=== PATIENT | female | born 1995 | race Caucasian/White ===

== ENCOUNTER 2017-07-05 17:51 | Inpatient (IN) | payer OTHER ==
[2017-07-05] MEDS ORDERED: DEXTROSE 5%-LACTATED RINGERS 500 ML IV ONE ×2 (20:00→21:00)
[2017-07-05 21:51] VITALS: BMI 32.6
--- NOTE | 2017-07-05 22:02 | HP ---
Past Medical History - Admission Chief Complaint: Labor pain History of Present Illness: 22 yo @ 39.1 weeks gestation, EDC 07/11/17, admitted for labor pain. She's been experiencing pain since 5 am. She denies any vaginal bleeding nor ROM. History Source: Patient Limitations to Obtaining History: No Limitations - Past Medical History ...: 1 ...Para: 0 ...Term: 0 ...: 0 ...Spon : 0 ...Induced : 0 ...Multiple Gestation: 0 ...LMP: 10/04/16 ... Weeks Gestation by Dates: 39.1 ...EDC by Dates: 07/11/17 - Past Surgical History Past Surgical History: Yes: None Hx Myomectomy: No Hx Transabdominal Cerclage: No - Smoking History Smoking history: Never smoked - Alcohol/Substance Use Hx Alcohol Use: No Home Medications - Allergies Allergies/Adverse Reactions: Allergies Allergy/AdvReac Type Severity Reaction Status Date / Time ibuprofen [From Motrin] AdvReac Mild Swelling Verified 07/05/17 18:47 - Home Medications Home Medications: Ambulatory Orders One Tablet 1 tab PO DAILY 07/05/17 Family Disease History - Family Disease History Family History: Unremarkable Review of Systems - Review of Systems Constitutional: reports: No Symptoms Eyes: reports: No Symptoms HENT: reports: No Symptoms Neck: reports: No Symptoms Cardiovascular: reports: No Symptoms Respiratory: reports: No Symptoms Gastrointestinal: reports: No Symptoms Genitourinary: reports: Pain Breasts: reports: No Symptoms Reported Musculoskeletal: reports: No Symptoms Integumentary: reports: No Symptoms Neurological: reports: No Symptoms Endocrine: reports: No Symptoms Hematology/Lymphatic: reports: No Symptoms Pain Intensity: 7 Physical Exam - Maternity Vital Signs: Vital Signs Temperature 98.7 F 07/05/17 21:35 Pulse Rate 90 07/05/17 21:35 Respiratory Rate 18 07/05/17 21:35 Blood Pressure 126/81 07/05/17 21:35 O2 Sat by Pulse Oximetry (%) Constitutional: Yes: Well Nourished Eyes: Yes: Conjunctiva Clear HENT: Yes: Atraumatic Neck: Yes: Supple Cardiovascular: Yes: Regular Rate and Rhythm Lungs: Clear to auscultation - Abdominal Exam/OB Number of Fetuses: Single Presentation: Vertex Contractions: Yes - Vaginal Exam/OB Dilatation (cm): 3 Effacement (%): 80 Amniotic Membrane Status: Intact Station: -2 - Physical Exam ...Motor Strength: WNL Psychiatric: Yes: Alert, Oriented Problem List - Problems (1) Pain during labor Code(s): O99.89 - OTH DISEASES AND CONDITIONS COMPL PREG/CHLDBRTH; R52 - PAIN, UNSPECIFIED Assessment/Plan IUP @ 39 weeks Early labor Admits to L&D Analgesia as needed Anticipate
[2017-07-05] MEDS ORDERED: BUTORPHANOL TARTRATE 1 MG/ML VIAL IVPUSH PRN (22:06)
[2017-07-05] MEDS ORDERED: PROMETHAZINE HCL 25 MG/1 ML VIAL IVPB PRN (22:07)
[2017-07-05] MEDS ORDERED: OXYTOCIN 15 UNITS/ LR 250 ML 15 UNIT/250 ML INFUS.BAG IVPB SCH (22:15)
[2017-07-05] MEDS ORDERED: AMPICILLIN - 2 GM in SODIUM CHLORIDE 100 ML IVPB ONE (22:30)
[2017-07-05] MEDS ORDERED: AMPICILLIN SODIUM 2 GM VIAL ONE (22:35)
[2017-07-05 22:36] LABS: COCAINE, UR NEGATIVE ng/ml (CUTOFF=300); METHADONE, UR NEGATIVE ng/ml (CUTOFF=300); OPIATES, URI NEGATIVE ng/ml (CUTOFF=300); PHENCYCLIDINE,URINE NEGATIVE ng/ml (CUTOFF=25); URINE AMPHETAMINES NEGATIVE ng/ml (CUTOFF=500); URINE BARBITURATES NEGATIVE ng/ml (CUTOFF=200); URINE BENZODIAZEPINES NEGATIVE ng/ml (CUTOFF=200)
[2017-07-05] MEDS ORDERED: PROMETHAZINE HCL 25 MG/1 ML VIAL ONE (22:36)
[2017-07-05] MEDS ORDERED: BUTORPHANOL TARTRATE 1 MG/ML VIAL ONE ×2 (22:36)
[2017-07-05 22:44] LABS: BASO % 0.3 % (0-2.0); EOS % 0.4 % (0-4.5); HEMATOCRIT 36.5 % (32.4-45.2); HEMOGLOBIN 12.4 GM/dL (10.7-15.3); LYMPH % 11.8 % (8-40); MCH 29.9 pg (25.7-33.7); MCHC 34.1 g/dl (32.0-36.0); MEAN CELL VOLUME 87.7 fl (80-96); MONO % 10.2 % (3.8-10.2); NEUT % 77.3 % (42.8-82.8); PLATELET COUNT 275 K/MM3 (134-434); RBC 4.16 M/mm3 (3.60-5.2); RDW 13.9 % (11.6-15.6); WHITE BLOOD COUNT 8.7 K/mm3 (4.0-10.0)
[2017-07-05] MEDS: DEXTROSE 5%-LACTATED RINGERS 1,000 ML IV SCH (22:56)
[2017-07-05 22:59] LABS: ANION GAP 9 (8-16); BLOOD UREA NITROGEN 10 mg/dL (7-18); CALCIUM 8.5 mg/dL (8.5-10.1); CHLORIDE 105 mmol/L (98-107); CO2 24 mmol/L (21-32); CREATININE 0.7 mg/dL (0.55-1.02); GLUCOSE,RANDOM 89 mg/dL (74-106); SODIUM 138 mmol/L (136-145)
[2017-07-05 23:11] LABS: INR 1.03 (0.82-1.09); PROTHROMBIN TIME (PATIENT) 11.6 SEC (9.98-11.88)
[2017-07-05] MEDS ORDERED: OXYTOCIN 15 UNITS/ LR 250 ML 15 UNIT/250 ML INFUS.BAG IVPB ONE (23:11)
[2017-07-05 23:14] LABS: ACTIVATED PTT 28.3 SECONDS (26.9-34.4)
[2017-07-06] MEDS ORDERED: FENTANYL/BUPIVACAINE/NS/PF - PCEA - 50 ML DISP.SYRIN EP ONE ×2 (00:47→05:26)
--- NOTE | 2017-07-06 00:54 | PN ---
Progress Note (short form) - Note Progress Note: Patient re-evaluated. She c/o moderate discomfort; status post stadol. FHR : reactive [place] : + contractions Q 1 min SROM ( clear ) VE : /-1 A/P : Active labor Epidural anesthesia Anticipate Problem List - Problems (1) Pain during labor Code(s): O99.89 - OTH DISEASES AND CONDITIONS COMPL PREG/CHLDBRTH; R52 - PAIN, UNSPECIFIED
[2017-07-06] MEDS: ELECTROLYTE-148 SOLN 1,000 ML IV SCH (01:00)
[2017-07-06] MEDS: FENTANYL/BUPIVACAINE/NS/PF - PCEA - 50 ML DISP.SYRIN EP SCH (01:15)
[2017-07-06] MEDS ORDERED: NALOXONE HCL 0.4 MG/ML VIAL IVPUSH PRN (01:21)
[2017-07-06] MEDS ORDERED: AMPICILLIN SODIUM 1 GM VIAL ONE ×2 (02:25→06:08)
[2017-07-06] MEDS: AMPICILLIN - 1 GM in SODIUM CHLORIDE 100 ML IVPB SCH ×5 (02:25→19:21)
[2017-07-06] MEDS ORDERED: ACETAMINOPHEN 325 MG TABLET (FP) PO ONE (04:30)
[2017-07-06] MEDS ORDERED: ACETAMINOPHEN 325 MG TABLET (FP) ONE (04:37)
[2017-07-06] MEDS ORDERED: CITRIC ACID/SODIUM CITRATE 30 ML UNIT-DOSE CUP PO ONE (07:15)
--- NOTE | 2017-07-06 07:33 | PN ---
Progress Note (short form) - Note Progress Note: Patient re-evaluated. She c/o moderate discomfort; status post epidural anesthesia. FHR : reactive [place] : + contractions Q 1 min SROM ( clear ) VE : 5 /-1 A/P : Arrest of descent Pre op for Consent signed Anesthesia to see patient Problem List - Problems (1) Pain during labor Code(s): O99.89 - OTH DISEASES AND CONDITIONS COMPL PREG/CHLDBRTH; R52 - PAIN, UNSPECIFIED
[2017-07-06] MEDS: OXYTOCIN 20 UNITS in 0.9% NS 20 UNIT/1,000 ML INFUS.BAG IV SCH ×2 (08:25→11:06)
[2017-07-06] MEDS ORDERED: OXYTOCIN 10 UNITS/ML VIAL ONE ×2 (08:40→08:50)
[2017-07-06] MEDS ORDERED: ONDANSETRON 4 MG/2 ML VIAL IVPUSH PRN (08:48)
[2017-07-06] MEDS ORDERED: IBUPROFEN 600 MG TABLET (FP) PO PRN (09:07)
[2017-07-06] MEDS ORDERED: METHYLERGONOVINE MALEATE 0.2 MG/1 ML AMP IM PRN (09:07)
--- NOTE | 2017-07-06 09:10 | OP ---
Operative Note - Note: Operative Date: 07/06/17 Pre-Operative Diagnosis: Arrest of descent Operation: Primary Low Transverse Findings: Baby girl in vertex position Post-Operative Diagnosis: Same as Pre-op Surgeon: Cris Pratt Rack Maker: Drew Colin Anesthesia: Epidural Specimens Removed: Placenta Estimated Blood Loss (mls): 500
[2017-07-06] MEDS: ACETAMINOPHEN 325 MG TABLET (FP) PO PRN (11:52)
[2017-07-07] MEDS: ACETAMINOPHEN 325 MG TABLET (FP) PO PRN ×3 (01:12→23:45)
[2017-07-07] MEDS: FENTANYL/BUPIVACAINE/NS/PF - PCEA - 50 ML DISP.SYRIN EP SCH (02:38)
--- NOTE | 2017-07-07 06:24 | PN ---
Progress Note (SOAP) - Subjective Chief Complaint: Pt with low grade temps presently none pt will ambulate today baby in center. mother with fevers prior to delivery - Current Medications Current Medications: Active Medications Acetaminophen (Tylenol -) 650 mg PO Q4H PRN PRN Reason: FEVER OR PAIN Last Admin: 07/07/17 01:12 Dose: 650 mg Bisacodyl (Dulcolax Suppository -) 10 mg RC PRN PRN PRN Reason: CONSTIPATION Diphenhydramine HCl (Benadryl Injection -) 25 mg IVPUSH Q4H PRN PRN Reason: Pruritis Fentanyl/Bupivacaine/Sodium Chlor (Bupivicaine 0.125%/Fentanyl 2mcg/Ml Pcea) 0 ml EP [facility] PRN Reason: Protocol Last Admin: 07/07/17 02:38 Dose: Not Given Dextrose/Lactated Ringer's (D5-Lr -) 1,000 mls @ 125 mls/hr IV ASDIR [facility] Last Admin: 07/05/17 22:56 Dose: 125 mls/hr Oxytocin/Lactated Ringer's (Lactated Ringer+ 15 Units Pitocin) 15 unit in 250 mls @ 1 mls/hr IVPB ASDIR [facility]; 0.06 UNIT/HR PRN Reason: Protocol Last Titration: 07/06/17 06:54 Dose: 0 unit/hr, 0 mls/hr Parenteral Electrolytes (Plasma-Lyte 148 -) 1,000 mls @ 125 mls/hr IV ASDIR [facility] Last Admin: 07/06/17 01:00 Dose: 125 mls/hr Oxytocin/Sodium Chloride (Normal Saline+20 Units Oxytocin -) 20 unit in 1,000 mls @ 125 mls/hr IV ASDIR [facility] Last Admin: 07/06/17 11:06 Dose: 125 mls/hr Methylergonovine Maleate (Methergine Injection -) 0.2 mg IM Q4H PRN PRN Reason: Excessive Bleeding (L&D) Naloxone HCl (Narcan -) 0.4 mg IVPUSH PRN PRN PRN Reason: Sedation Ondansetron HCl (Zofran Injection) 4 mg IVPUSH Q4H PRN PRN Reason: NAUSEA Oxycodone HCl (Roxicodone -) 5 mg PO Q4H PRN PRN Reason: PAIN LEVEL 1-5 Promethazine HCl (Phenergan Injection -) 25 mg IVPB Q6H PRN PRN Reason: NAUSEA AND/OR VOMITING Last Admin: 07/05/17 22:55 Dose: 25 mg Simethicone (Mylicon -) 80 mg PO Q4H PRN PRN Reason: GAS - Objective Vital Signs: Vital Signs Temperature 100.2 F H 07/07/17 01:39 Pulse Rate 110 H 07/07/17 01:39 Respiratory Rate 20 07/07/17 01:39 Blood Pressure 130/67 07/07/17 01:39 O2 Sat by Pulse Oximetry (%) 98 07/06/17 09:49 Constitutional: Yes: Well Nourished, No Distress Respiratory: Yes: WNL Gastrointestinal: Yes: WNL, Soft ....Post : Yes: Uterus firm, Uterus non-tender Wound/Incision: Yes: Clean/Dry, Dressing Dry and Intact Neurological: Yes: WNL, Alert, Oriented Labs Lab Results: CBC, BMP 07/05/17 21:30 07/05/17 21:30 Assessment/Plan POD 1 Stable Plan OOB Ambulate CBC
--- NOTE | 2017-07-07 08:42 | PN ---
Progress Note (short form) - Note Progress Note: Post op day#1.S/P C section under spinal anesthesia with duramorph uneventful.Patient stable and has little pain for which she is on medication.No any anesthesia related problem.Patient Dc from the anesthesia care.
[2017-07-07 08:49] LABS: BASO % 0.3 % (0-2.0); EOS % 0.4 % (0-4.5); HEMATOCRIT 31.9 % (32.4-45.2); HEMOGLOBIN 10.5 GM/dL (10.7-15.3); LYMPH % 8.2 % (8-40); MCH 28.8 pg (25.7-33.7); MCHC 32.9 g/dl (32.0-36.0); MEAN CELL VOLUME 87.7 fl (80-96); MEAN PLT VOLUME 8.6 fl (7.5-11.1); NEUT % 82.1 % (42.8-82.8); PLATELET COUNT 205 K/MM3 (134-434); RBC 3.63 M/mm3 (3.60-5.2); RDW 13.9 % (11.6-15.6); WHITE BLOOD COUNT 15.4 K/mm3 (4.0-10.0)
[2017-07-07] MEDS ORDERED: BISACODYL 10 MG SUPP.RECT RC PRN (09:07)
[2017-07-07] MEDS ORDERED: CEFAZOLIN 1 GM in DEXTROSE 5%-WATER - 50 ML IVPB ONE (11:45)
[2017-07-07] MEDS ORDERED: CEFAZOLIN 1 GM PUSH 1 GM/10 ML DISP.SYRIN IVPUSH ONE (12:30)
[2017-07-07] MEDS: SIMETHICONE 80 MG TAB.CHEW (FP) PO PRN ×2 (17:18→23:44)
[2017-07-07] MEDS: oxyCODONE HCL 5 MG TABLET PO PRN ×2 (17:18→23:44)
--- NOTE | 2017-07-08 01:13 | PN ---
Post Progress Note - Subjective Subjective: 22 yo Para 1 status post primary seen and evaluated. She denies any fever nor chills. WBC is elevated. Post Day: 2 Type of Delivery: Primary C/S Vital Signs: Vital Signs Temperature 97.6 F 07/07/17 20:37 Pulse Rate 76 07/07/17 20:37 Respiratory Rate 20 07/07/17 20:37 Blood Pressure 133/73 07/07/17 20:37 O2 Sat by Pulse Oximetry (%) 98 07/06/17 09:49 Breast Exam: Yes: Soft Uterus: Yes: Fundus Firm Incision: Yes: Dressing dry and intact Abdomen/GI: Yes: Abdomen soft, Tolerating PO Lochia: Yes: Rubra Lochia, amount: Small Extremities: Yes: Calves non-tender Perineum: Yes: Intact Activity: Ambulating - Labs Labs: CBC WBC 15.4 K/mm3 (4.0-10.0) H D 07/07/17 08:00 RBC 3.63 M/mm3 (3.60-5.2) 07/07/17 08:00 Hgb 10.5 GM/dL (10.7-15.3) L D 07/07/17 08:00 Hct 31.9 % (32.4-45.2) L 07/07/17 08:00 MCV 87.7 fl (80-96) 07/07/17 08:00 MCH 28.8 pg (25.7-33.7) 07/07/17 08:00 MCHC 32.9 g/dl (32.0-36.0) 07/07/17 08:00 RDW 13.9 % (11.6-15.6) 07/07/17 08:00 Plt Count 205 K/MM3 (134-434) D 07/07/17 08:00 MPV 8.6 fl (7.5-11.1) 07/07/17 08:00 Neutrophils % 82.1 % (42.8-82.8) 07/07/17 08:00 Lymphocytes % 8.2 % (8-40) D 07/07/17 08:00 Monocytes % 9.0 % (3.8-10.2) 07/07/17 08:00 Eosinophils % 0.4 % (0-4.5) 07/07/17 08:00 Basophils % 0.3 % (0-2.0) 07/07/17 08:00 Problem List - Problems (1) Pain during labor Code(s): O99.89 - OTH DISEASES AND CONDITIONS COMPL PREG/CHLDBRTH; R52 - PAIN, UNSPECIFIED (2) Status post primary low transverse section Code(s): Z98.891 - HISTORY OF UTERINE SCAR FROM PREVIOUS SURGERY Assessment/Plan Status post primary Leukocytosis Continue antibiotic Continue care
[2017-07-08] MEDS: SIMETHICONE 80 MG TAB.CHEW (FP) PO PRN ×2 (14:06→19:31)
[2017-07-08] MEDS: ACETAMINOPHEN 325 MG TABLET (FP) PO PRN ×2 (14:06→19:31)
[2017-07-08] MEDS: oxyCODONE HCL 5 MG TABLET PO PRN ×2 (14:06→19:31)
[2017-07-08] MEDS: DEXTROSE 5%-LACTATED RINGERS 1,000 ML IV SCH ×2 (19:29→19:30)
[2017-07-08] MEDS: ELECTROLYTE-148 SOLN 1,000 ML IV SCH (19:30)
[2017-07-09] MEDS: ACETAMINOPHEN 325 MG TABLET (FP) PO PRN ×3 (01:39→20:39)
[2017-07-09] MEDS: oxyCODONE HCL 5 MG TABLET PO PRN (01:39)
[2017-07-09] MEDS: SIMETHICONE 80 MG TAB.CHEW (FP) PO PRN ×2 (01:39→12:11)
[2017-07-09 07:21] LABS: BASO % 0.5 % (0-2.0); EOS % 3.8 % (0-4.5); HEMATOCRIT 33.1 % (32.4-45.2); MCHC 33.1 g/dl (32.0-36.0); MEAN CELL VOLUME 87.5 fl (80-96); MEAN PLT VOLUME 8.3 fl (7.5-11.1); MONO % 8.9 % (3.8-10.2); NEUT % 66.8 % (42.8-82.8); PLATELET COUNT 265 K/MM3 (134-434); RBC 3.79 M/mm3 (3.60-5.2); RDW 13.6 % (11.6-15.6)
--- NOTE | 2017-07-09 08:57 | PN ---
Post Progress Note - Subjective Subjective: Pt seen/examined, no complaints. Feeling well. Pain controlled, tolerating diet, ambulating, voiding, passing flatus. VB minimal. Denies CP/SOB/F/c/SHARPE. Type of Delivery: Primary C/S Vital Signs: Vital Signs Temperature 97.8 F 07/08/17 22:00 Pulse Rate 88 07/08/17 22:00 Respiratory Rate 18 07/08/17 22:00 Blood Pressure 130/98 07/08/17 22:00 O2 Sat by Pulse Oximetry (%) 98 07/06/17 09:49 Uterus: Yes: Fundus Firm, Fundus below umbilicus Incision: Yes: Sutures intact Abdomen/GI: Yes: Abdomen soft, Passing flatus, Tolerating PO. No: Tender Lochia, amount: Small Extremities: Yes: Calves non-tender. No: Edema Perineum: Yes: Intact Activity: Ambulating - Labs Labs: CBC WBC 8.0 K/mm3 (4.0-10.0) D 07/09/17 06:45 RBC 3.79 M/mm3 (3.60-5.2) 07/09/17 06:45 Hgb 11.0 GM/dL (10.7-15.3) 07/09/17 06:45 Hct 33.1 % (32.4-45.2) 07/09/17 06:45 MCV 87.5 fl (80-96) 07/09/17 06:45 MCH 29.0 pg (25.7-33.7) 07/09/17 06:45 MCHC 33.1 g/dl (32.0-36.0) 07/09/17 06:45 RDW 13.6 % (11.6-15.6) 07/09/17 06:45 Plt Count 265 K/MM3 (134-434) D 07/09/17 06:45 MPV 8.3 fl (7.5-11.1) 07/09/17 06:45 Neutrophils % 66.8 % (42.8-82.8) 07/09/17 06:45 Lymphocytes % 20.0 % (8-40) D 07/09/17 06:45 Monocytes % 8.9 % (3.8-10.2) 07/09/17 06:45 Eosinophils % 3.8 % (0-4.5) D 07/09/17 06:45 Basophils % 0.5 % (0-2.0) 07/09/17 06:45 Problem List - Problems (1) Status post primary low transverse section Code(s): Z98.891 - HISTORY OF UTERINE SCAR FROM PREVIOUS SURGERY Assessment/Plan 22 y/o POD#3 s/p delivery - AFVSS - Hgb 11.0 post op, stable - regular diet, encourage ambulation, PO pain meds - plan for discharge home in a.m. if stable
[2017-07-10 08:19] VITALS: BP 133/85; PULSE 65; TEMP 98.6
--- NOTE | 2017-07-12 15:26 | PATH ---
Surgical Pathology Report Patient Name: PRICILA LORENZO Med. Rec. #: [id number] /Age/Gender: 1995 (Age: 22) / F Account: [id number] Location: [facility] OBS/SENIOR ARCHITECT Taken: 07/06/2017 Received: 07/07/2017 Reported: 07/12/2017 Physicians: Cris Pratt M.D. Specimen(s) Received PLACENTA Clinical History 39.1 weeks gestation, failure to progress Temperature during labor Final Diagnosis PLACENTA, SECTION: 467 G THIRD TRIMESTER PLACENTA WITH TRIVASCULAR UMBILICAL CORD, FOCAL INTRAPARENCHYMAL INFARCT (LESS THAN 10% OF PLACENTAL SURFACE) AND FOCAL ACUTE MILD CHORIOAMNIONITIS. Electronically Signed Viridiana Fortune M.D. Gross Description The specimen is received fresh labeled placenta and is a 467 gram, 21.0 x 13.0 x 2.3 cm. placenta with attached membranes and umbilical cord. The attached membranes are best, translucent with focal opacities and insert marginally. The umbilical cord measures 26 cm. in length and averages 1.2 cm. in diameter. The cord inserts centrally. No true knots or strictures are identified. Cut surface of the umbilical cord reveals 3 vessels. The surface is escamilla-blue with minimal fibrin deposition and appropriate caliber vessels. The maternal surface is red-brown with focal defects. Sectioning reveals a 1.5 cm in greatest dimension intraparenchymal lesion. The remaining placental parenchyma is red-brown and spongy. Glaucoma Specialist sections are submitted in 4 cassettes as follows: 1-membrane roll and umbilical cord; 2-lesion; 3-4-full thickness sections of placenta. /07/09/201707/09/2017
== END 2017-07-10 10:30 | disposition home or self-care (01) | DRG 540 ==
LOC: JDEL 17:51 → JLDR 21:08 → J3W 07-06 11:00
PROVIDERS: ADMIT Obstetrics & Gynecology; ATTEND Obstetrics & Gynecology
PROC: 10D00Z1 Extraction of Products of Conception, Low, Open Approach (ICD-10-PCS; principal; 2017-07-06)
DX: O62.1 Secondary uterine inertia (principal); Z3A.39 39 weeks gestation of pregnancy; Z37.0 Single live birth
CPT/HCPCS: 36415; 59025; 71045-TC; 80048; 80307; 85025; 85610; 85730; 86593; 86850; 86900; 86901; 87389; 87804; 88307-TC

== ENCOUNTER 2018-11-28 11:45 | Inpatient (IN) | payer OTHER ==
[2018-11-28 12:43] VITALS: BMI 28.7
[2018-11-28] MEDS ORDERED: TUBERCULIN PPD 5 TU/0.1ML SYRINGE (IN PATIENT USE ONLY) ID ONE (12:45)
[2018-11-28] MEDS ORDERED: CITRIC ACID/SODIUM CITRATE 30 ML UNIT-DOSE CUP PO ONE ×2 (12:45→12:59)
[2018-11-28] MEDS ORDERED: ELECTROLYTE-148 SOLN 500 ML IV SCH (12:45)
[2018-11-28] MEDS ORDERED: ELECTROLYTE-148 SOLN 1,000 ML IV SCH ×2 (13:00→13:15)
--- NOTE | 2018-11-28 13:01 | HP ---
Past Medical History - Admission Chief Complaint: Here for repeat c section. History of Present Illness: 23 y/o P1 female with h/o prior delivery in 2018 here at 39.3 weeks gestation for scheduled repeat . Pt declined TOLAC. complicated by mom and FOB being sickle cell trait carriers, declined amnio/ CVS. Pt with reported positive HepA, recent hepatitis Panel negative. No other issues/concerns. History Source: Patient, Medical Record Limitations to Obtaining History: No Limitations - Past Medical History Cardiovascular: No: HTN Pulmonary: No: Asthma, COPD Hepatobiliary: Yes: Other (reported +Hep A screen - hepatitis panel October 2018 negative). No: Hepatitis B, Hepatitis C Reproductive: No: Fibroids, PID ...: 2 ...Para: 1 ...Term: 1 ...: 0 ...Spon : 0 ...Induced : 0 ...Multiple Gestation: 0 ...EDC by [facility]: 12/02/18 Heme/Onc: Yes: Anemia Infectious Disease: No: HIV, MRSA, STD's Psych: No: Anxiety, Bipolar, Depression, Panic - Past Surgical History Past Surgical History: Yes: None Hx Myomectomy: No Hx Transabdominal Cerclage: No - Smoking History Smoking history: Never smoked Have you smoked in the past 12 months: No - Alcohol/Substance Use Hx Alcohol Use: No - Social History ADL: Independent History of Recent Travel: No Home Medications - Allergies Allergies/Adverse Reactions: Allergies Allergy/AdvReac Type Severity Reaction Status Date / Time ibuprofen [From Motrin] AdvReac Mild Swelling Verified 11/28/18 12:43 - Home Medications Home Medications: Ambulatory Orders Pnv No.95/Ferrous Fum/Folic AC [ Vitamin Tablet] 1 each PO DAILY Review of Systems - Review of Systems Constitutional: reports: No Symptoms Eyes: reports: No Symptoms HENT: reports: No Symptoms Neck: reports: No Symptoms Cardiovascular: reports: No Symptoms Respiratory: reports: No Symptoms Gastrointestinal: reports: No Symptoms Genitourinary: reports: No Symptoms Breasts: reports: No Symptoms Reported Musculoskeletal: reports: No Symptoms Integumentary: reports: No Symptoms Neurological: reports: No Symptoms Endocrine: reports: No Symptoms Hematology/Lymphatic: reports: No Symptoms Psychiatric: reports: No Symptoms Physical Exam - Maternity Vital Signs: Vital Signs Temperature 98.7 F 11/28/18 11:45 Pulse Rate 87 11/28/18 11:45 Respiratory Rate 18 11/28/18 11:45 Blood Pressure 107/72 11/28/18 11:45 O2 Sat by Pulse Oximetry (%) Constitutional: Yes: Well Nourished, No Distress, Calm Eyes: Yes: Conjunctiva Clear, EOM Intact HENT: Yes: Atraumatic Neck: Yes: Supple Cardiovascular: Yes: Regular Rate and Rhythm Lungs: Clear to auscultation Breast(s): Yes: WNL - Abdominal Exam/OB Fundal Height: 39 Number of Fetuses: Single Presentation: Vertex Category: I Accelerations: Uniform Decelerations: None - Vaginal Exam/OB Speculum Exam: No Amniotic Membrane Status: Intact - Physical Exam Psychiatric: Yes: Alert, Oriented Hemorrhage Risk Assessment - Risk Factors Medium Risk Factors: Yes: None High Risk Factors: Yes: None Risk Score: 1 Risk Level: Medium Risk Problem List - Problems (1) History of delivery Code(s): Z98.891 - HISTORY OF UTERINE SCAR FROM PREVIOUS SURGERY (2) History of sickle cell trait in father of unborn child Code(s): [id number] - (3) Hx of sickle cell trait Code(s): Z86.2 - PRSNL HISTORY OF DIS OF THE BLD/BLD-FORM ORG/IMMUN MECHNSM Assessment/Plan 23 y/o with SIUP at 39.3 weeks, for scheduled repeat c section NPO Garza Anesthesia/nursery aware consents signed
[2018-11-28 13:45] LABS: BASO % 0.5 % (0-2.0); EOS % 1.1 % (0-4.5); HEMATOCRIT 35.8 % (32.4-45.2); HEMOGLOBIN 12.3 GM/dL (10.7-15.3); LYMPH % 16.5 % (8-40); MCH 31.5 pg (25.7-33.7); MCHC 34.5 g/dl (32.0-36.0); MEAN CELL VOLUME 91.3 fl (80-96); MEAN PLT VOLUME 8.9 fl (7.5-11.1); MONO % 10.5 % (3.8-10.2); NEUT % 71.4 % (42.8-82.8); PLATELET COUNT 294 K/MM3 (134-434); RBC 3.92 M/mm3 (3.60-5.2); RDW 13.5 % (11.6-15.6); WHITE BLOOD COUNT 7.8 K/mm3 (4.0-10.0)
[2018-11-28 13:48] LABS: INR 0.98 (0.83-1.09); PROTHROMBIN TIME (PATIENT) 11.6 SEC (9.7-13.0)
[2018-11-28 13:50] LABS: ACTIVATED PTT 29.5 SECONDS (25.2-36.5)
[2018-11-28 14:01] LABS: CALCIUM 8.5 mg/dL (8.5-10.1); CREATININE 0.5 mg/dL (0.55-1.3); POTASSIUM 4.1 mmol/L (3.5-5.1)
[2018-11-28] MEDS ORDERED: OXYTOCIN 20 UNITS in 0.9% NS 40 UNIT/2,000 ML INFUS.BAG IV ONE (14:19)
[2018-11-28] MEDS ORDERED: oxyCODONE HCL 5 MG TABLET PO PRN (14:19)
[2018-11-28] MEDS ORDERED: IBUPROFEN 600 MG TABLET (FP) PO PRN (14:19)
[2018-11-28] MEDS ORDERED: IBUPROFEN 800 MG/8 ML IJ IVPB PRN (14:19)
[2018-11-28] MEDS ORDERED: METHYLERGONOVINE MALEATE 0.2 MG/1 ML AMP IM PRN (14:19)
[2018-11-28] MEDS ORDERED: morphine SULFATE/Preservative Free 0.5 MG/ML (1cc Syringe) ONE (14:21)
[2018-11-28] MEDS ORDERED: ePHEDrine SULFATE 50 MG/1 ML AMPULE ONE (14:21)
[2018-11-28] MEDS ORDERED: ceFAZolin SODIUM 1 GM VIAL ONE (14:22)
[2018-11-28] MEDS ORDERED: DEXAMETHASONE SOD PHOSPHATE 4 MG/1 ML VIAL ONE (14:22)
[2018-11-28 15:07] LABS: COCAINE, UR NEGATIVE ng/ml (CUTOFF=300); METHADONE, UR NEGATIVE ng/ml (CUTOFF=300); OPIATES, URI NEGATIVE ng/ml (CUTOFF=300); PHENCYCLIDINE,URINE NEGATIVE ng/ml (CUTOFF=25); URINE AMPHETAMINES NEGATIVE ng/ml (CUTOFF=500); URINE BARBITURATES NEGATIVE ng/ml (CUTOFF=200); URINE BENZODIAZEPINES NEGATIVE ng/ml (CUTOFF=200)
[2018-11-28] MEDS ORDERED: ONDANSETRON 4 MG/2 ML VIAL IVPUSH PRN (15:19)
[2018-11-28] MEDS: FERROUS SO4 325 MG TABLET (FP) PO SCH (22:07)
[2018-11-29] MEDS: ACETAMINOPHEN 1000 MG/100 ML VIAL (NON FORMULARY) IVPB PRN ×2 (03:59→08:38)
--- NOTE | 2018-11-29 06:47 | OP ---
Operative Note - Note: Operative Date: 11/28/18 Pre-Operative Diagnosis: prior delivery, 39.3 weeks gestation Operation: repeat low transverse section Findings: normal b/l tubes and ovaries Post-Operative Diagnosis: Same as Pre-op Surgeon: Krystina Wilson Automatic Machine Attendant: Drew Colin Anesthesiologist/CRIME SCENE EXAMINER: Lori Potts Anesthesia: Spinal Specimens Removed: placenta Estimated Blood Loss (mls): 600 Operative Report Dictated: Yes
--- NOTE | 2018-11-29 07:40 | PN ---
HC Provider Note Provider Note: Anesthesia Post Pt seen s/p spinal for c/section Pt awake alert in chair Denies h/a, n/v, SOB good pain control ambulating well, monk removed approximately 10 mins prior to visit VSS no apparent anesthesia complications Agnes Evans.
[2018-11-29 07:50] LABS: BASO % 0.4 % (0-2.0); EOS % 0.3 % (0-4.5); HEMATOCRIT 34.2 % (32.4-45.2); HEMOGLOBIN 11.7 GM/dL (10.7-15.3); LYMPH % 11.6 % (8-40); MEAN PLT VOLUME 8.3 fl (7.5-11.1); MONO % 9.9 % (3.8-10.2); NEUT % 77.8 % (42.8-82.8); PLATELET COUNT 282 K/MM3 (134-434); RBC 3.76 M/mm3 (3.60-5.2); RDW 13.6 % (11.6-15.6); WHITE BLOOD COUNT 13.7 K/mm3 (4.0-10.0)
[2018-11-29] MEDS: PRENATAL VITAMINS W/ FOLIC ACID TABLET (FP) PO SCH (10:41)
[2018-11-29] MEDS: FERROUS SO4 325 MG TABLET (FP) PO SCH ×2 (10:41→22:11)
--- NOTE | 2018-11-29 10:52 | PN ---
Post Progress Note - Subjective Subjective: 23 yo Para 2 status post repeat , seen and evaluated. Doing well. Post Day: 1 Type of Delivery: Repeat C/S Vital Signs: Vital Signs Temperature 98.4 F 11/29/18 10:00 Pulse Rate 64 11/29/18 10:00 Respiratory Rate 18 11/29/18 10:00 Blood Pressure 127/77 11/29/18 10:00 O2 Sat by Pulse Oximetry (%) 100 11/28/18 16:30 Breast Exam: Yes: Soft Uterus: Yes: Fundus @ umbilicus Incision: Yes: Dressing dry and intact Abdomen/GI: Yes: Abdomen soft, Tolerating PO Lochia: Yes: Rubra Lochia, amount: Small Extremities: Yes: Calves non-tender Perineum: Yes: Intact Activity: Ambulating - Labs Labs: CBC WBC 13.7 K/mm3 (4.0-10.0) H 11/29/18 07:15 RBC 3.76 M/mm3 (3.60-5.2) 11/29/18 07:15 Hgb 11.7 GM/dL (10.7-15.3) 11/29/18 07:15 Hct 34.2 % (32.4-45.2) 11/29/18 07:15 MCV 91.0 fl (80-96) 11/29/18 07:15 MCH 31.0 pg (25.7-33.7) 11/29/18 07:15 MCHC 34.0 g/dl (32.0-36.0) 11/29/18 07:15 RDW 13.6 % (11.6-15.6) 11/29/18 07:15 Plt Count 282 K/MM3 (134-434) 11/29/18 07:15 MPV 8.3 fl (7.5-11.1) 11/29/18 07:15 Absolute Neuts (auto) 10.7 K/mm3 (1.5-8.0) H 11/29/18 07:15 Neutrophils % 77.8 % (42.8-82.8) 11/29/18 07:15 Lymphocytes % 11.6 % (8-40) D 11/29/18 07:15 Monocytes % 9.9 % (3.8-10.2) 11/29/18 07:15 Eosinophils % 0.3 % (0-4.5) 11/29/18 07:15 Basophils % 0.4 % (0-2.0) 11/29/18 07:15 Nucleated RBC % 0 % (0-0) 11/29/18 07:15 Problem List - Problems (1) Status post repeat low transverse section Code(s): Z98.891 - HISTORY OF UTERINE SCAR FROM PREVIOUS SURGERY Assessment/Plan Status post repeat Ambulation Analgesia as needed Continue post op care
[2018-11-29] MEDS: oxyCODONE HCL 5 MG TABLET PO PRN (13:12)
[2018-11-29] MEDS: SIMETHICONE 80 MG TAB.CHEW (FP) PO PRN ×2 (13:12→20:03)
[2018-11-29] MEDS: ACETAMINOPHEN 325 MG TABLET (FP) PO PRN ×2 (13:13→20:04)
[2018-11-29] MEDS ORDERED: BISACODYL 10 MG SUPP.RECT RC PRN (14:20)
[2018-11-29] MEDS: SENNOSIDES/DOCUSATE COMBO (SENNA PLUS) TABLET (UD) PO PRN (22:11)
[2018-11-30] MEDS: oxyCODONE HCL 5 MG TABLET PO PRN ×3 (01:26→23:29)
[2018-11-30] MEDS: SIMETHICONE 80 MG TAB.CHEW (FP) PO PRN ×4 (01:26→23:28)
[2018-11-30] MEDS: ACETAMINOPHEN 325 MG TABLET (FP) PO PRN ×4 (01:27→23:28)
[2018-11-30] MEDS: PRENATAL VITAMINS W/ FOLIC ACID TABLET (FP) PO SCH (09:24)
[2018-11-30] MEDS: FERROUS SO4 325 MG TABLET (FP) PO SCH ×2 (09:24→21:18)
--- NOTE | 2018-11-30 12:57 | PN ---
Progress Note (SOAP) - Subjective Chief Complaint: Pt doing well - Current Medications Current Medications: Active Medications Acetaminophen (Tylenol -) 650 mg PO Q4H PRN PRN Reason: FEVER Last Admin: 11/30/18 10:13 Dose: 650 mg Acetaminophen (Ofirmev Injection -) 1,000 mg IVPB Q6H PRN PRN Reason: PAIN LEVEL 6-10 Last Admin: 11/29/18 08:38 Dose: 1,000 mg Bisacodyl (Dulcolax Suppository -) 10 mg RC PRN PRN PRN Reason: CONSTIPATION Last Admin: 11/29/18 22:13 Dose: 10 mg Diphenhydramine HCl (Benadryl Injection -) 25 mg IVPUSH Q4H PRN PRN Reason: Pruritis Last Admin: 11/28/18 21:16 Dose: 25 mg Ferrous Sulfate (Feosol -) 325 mg PO BID RENETTA Last Admin: 11/30/18 09:24 Dose: 325 mg Methylergonovine Maleate (Methergine Injection -) 0.2 mg IM Q4H PRN PRN Reason: Excessive Bleeding (L&D) Ondansetron HCl (Zofran Injection) 4 mg IVPUSH Q4H PRN PRN Reason: NAUSEA Oxycodone HCl (Roxicodone -) 10 mg PO Q4H PRN PRN Reason: PAIN LEVEL 7 - 10 Last Admin: 11/29/18 20:04 Dose: 10 mg Oxycodone HCl (Roxicodone -) 5 mg PO Q4H PRN PRN Reason: PAIN LEVEL 4 - 6 Last Admin: 11/30/18 01:26 Dose: 5 mg Multivit/Folic Acid/Iron ( Vitamins (Sjr) -) 1 tab PO DAILY [facility] Last Admin: 11/30/18 09:24 Dose: 1 tab Senna/Docusate Sodium (Pericolace -) 2 tablet PO HS PRN PRN Reason: CONSTIPATION Last Admin: 11/29/18 22:11 Dose: 2 tablet Simethicone (Mylicon -) 80 mg PO Q4H PRN PRN Reason: GAS Last Admin: 11/30/18 10:14 Dose: 80 mg - Objective Vital Signs: Vital Signs Temperature 98.5 F 11/30/18 09:08 Pulse Rate 72 11/30/18 09:08 Respiratory Rate 20 11/30/18 09:08 Blood Pressure 128/80 11/30/18 09:08 O2 Sat by Pulse Oximetry (%) 100 11/28/18 16:30 Constitutional: Yes: Well Nourished, No Distress Neck: Yes: WNL Cardiovascular: Yes: WNL, Regular Rate and Rhythm Respiratory: Yes: WNL, Regular Gastrointestinal: Yes: WNL, Normal Bowel Sounds, Soft ....Post : Yes: Uterus firm, Uterus non-tender Musculoskeletal: Yes: WNL Extremities: Yes: WNL Peripheral Pulses WNL: No Edema: No Wound/Incision: Yes: Clean/Dry, Dressing Dry and Intact Neurological: Yes: WNL, Alert, Oriented Labs Lab Results: CBC, BMP 11/29/18 07:15 11/28/18 12:15 Assessment/Plan POD2 PLan continue present management
--- NOTE | 2018-11-30 17:37 | OP ---
DATE OF OPERATION: 11/28/2018 PREOPERATIVE DIAGNOSES: Prior section, declined trial of labor after section, spontaneous rupture of membranes, 39-3/7 weeks gestation. POSTOPERATIVE DIAGNOSES: Prior section, declined trial of labor after section, spontaneous rupture of membranes, 39-3/7 weeks gestation. PROCEDURE: Repeat low-transverse section. SURGEON: Krystina Wilson MD ANESTHESIA: Spinal, by Dr. Potts [employer] SALES: [employer] SPECIMENS: Placenta to Pathology for permanent evaluation. ESTIMATED BLOOD LOSS: 600 mL. COMPLICATIONS: None. FINDINGS: Normal female infant. Bilateral tubes and ovaries appeared normal. COUNTS: Sponge, needle, and instrument count correct. DISPOSITION: Stable to PACU. BRIEF HISTORY AND PROCEDURE: Patient is a 23-year-old female, who was scheduled for a repeat low-transverse section on the date of November 28, 2018. Upon admission to the hospital, the patient did have spontaneous rupture of membranes. Consents for the procedure were signed upon admission. She was then taken back to the operating room, given spinal anesthesia, and placed in the dorsal supine position. A Garza catheter was placed under sterile conditions, and she was prepped and draped in the usual sterile fashion. A hard timeout was performed. A Pfannenstiel skin incision was created in the skin with a scalpel and carried through the underlying layer of rectus fascia sharply. The fascia was incised on either side of the midline sharply, and the fascial incision was carried in a superolateral direction sharply. The fascia was tented upward and dissected off the underlying layer of rectus muscle sharply. The musculature was identified in the midline and retracted laterally. The peritoneum was then entered bluntly and dissected to allow for adequate room for delivery. A bladder blade was then inserted. Incision on the lower uterine segment was completed sharply and carried in a superolateral direction bluntly. The infant was then delivered from the left occiput anterior position without difficulty. Bilateral shoulders were delivered with ease along with the remainder of the infant. The cord was clamped twice and cut in between. The was taken over to the warmer to be assessed by the neonatology staff. The placenta was then delivered manually and intact. The uterus was exteriorized from the abdomen, inspected, and cleared of amniotic membrane and debris with a dry lap sponge. The hysterotomy was reapproximated in a double-layer closure, 1st using 1 Vicryl in a running locked fashion, 2nd using 0 Biosyn in a running fashion. Excellent hemostasis was achieved. Bilateral tubes and ovaries were noted to be normal. The posterior cul-de-sac was suctioned of blood clot and fluid. The uterus was placed back into the abdomen. Bilateral gutters were inspected and cleared of all amniotic fluid, blood clot and debris. The hysterotomy was noted to be hemostatic. The peritoneum was reapproximated using running closure using 2-0 chromic. The musculature was reapproximated in 2 interrupted sutures using 0 Biosyn. Then the fascia was reapproximated using 1 Vicryl in a running fashion. The subcutaneous tissue was irrigated and any bleeding was cauterized with the Bovie device. The skin was reapproximated in subcuticular fashion using 3-0 Vicryl suture, and Steri-Strips were applied. The patient tolerated the procedure well, was recovering in stable condition after the procedure. KRYSTINA WILSON DO /[id number]
[2018-11-30] MEDS: SENNOSIDES/DOCUSATE COMBO (SENNA PLUS) TABLET (UD) PO PRN (21:18)
--- NOTE | 2018-12-01 06:12 | DS ---
Physical Exam-IMAGING CLERK Vital Signs: Vital Signs Temperature 98.3 F 11/30/18 22:00 Pulse Rate 77 11/30/18 22:00 Respiratory Rate 18 11/30/18 22:00 Blood Pressure 116/71 11/30/18 22:00 O2 Sat by Pulse Oximetry (%) 100 11/28/18 16:30 Constitutional: Yes: Well Nourished, No Distress, Calm Eyes: Yes: Conjunctiva Clear, EOM Intact HENT: Yes: Atraumatic Neck: Yes: Supple Cardiovascular: Yes: Regular Rate and Rhythm Respiratory: Yes: Regular, CTA Bilaterally Gastrointestinal: Yes: Normal Bowel Sounds, Soft ....Post : Yes: Uterus firm, Uterus non-tender Wound/Incision: Yes: Clean/Dry, Well Approximated Neurological: Yes: Alert, Oriented Psychiatric: Yes: Alert, Oriented Labs: CBC, BMP 11/29/18 07:15 11/28/18 12:15 Delivery - Delivery Section: Repeat, Low Flap Transverse Type of Anesthesia: Spinal Episiotomy/Laceration: None EBL (cc): 600 Delivery, Single - Stages of Labor Date of Delivery: 11/28/18 Time of Delivery: 14:43 Time Placenta Delivered: 14:44 Placenta: Yes: Manual Removal - Condition of Habitat Biologist/Service Mechanic Present: Yes Name: Pepper Copeland Infant Gender: Female Weight: 7 lb 13 oz Position: OA Total Hours ROM (Hrs/Mins): 0hrs 44min - 1 Minute Total Score: 9 5 Minutes Total Score: 9 - Feeding Plan Initial Plan: Elected not to breastfeed exclusively throughout hospitalization Discharge Summary Reason For Visit: Current Active Problems History of delivery (Acute) History of sickle cell trait in father of unborn child (Acute) Hx of sickle cell trait (Acute) Status post repeat low transverse section (Acute) Hospital Course: Pt admitted on 11/28/18 for scheduled repeat delivery. Pt underwent an uncomplicated procedure and had uncomplicated post course and was discharged on post op day 3. Condition: Good - Instructions Disposition: HOME - Home Medications Comprehensive Discharge Medication List: Ambulatory Orders Pnv No.95/Ferrous Fum/Folic AC [ Vitamin Tablet] 1 each PO DAILY
[2018-12-01 08:26] VITALS: BP 137/64; PULSE 64; TEMP 98.4
[2018-12-01 08:27] LABS: BASO % 0.6 % (0-2.0); EOS % 2.6 % (0-4.5); HEMATOCRIT 33.4 % (32.4-45.2); HEMOGLOBIN 11.5 GM/dL (10.7-15.3); LYMPH % 18.7 % (8-40); MCH 31.1 pg (25.7-33.7); MCHC 34.6 g/dl (32.0-36.0); MEAN CELL VOLUME 90.1 fl (80-96); MEAN PLT VOLUME 8.3 fl (7.5-11.1); MONO % 10.5 % (3.8-10.2); NEUT % 67.6 % (42.8-82.8); PLATELET COUNT 289 K/MM3 (134-434); RDW 13.5 % (11.6-15.6); WHITE BLOOD COUNT 7.7 K/mm3 (4.0-10.0)
[2018-12-01] MEDS: FERROUS SO4 325 MG TABLET (FP) PO SCH (09:05)
[2018-12-01] MEDS: SIMETHICONE 80 MG TAB.CHEW (FP) PO PRN (09:05)
[2018-12-01] MEDS: PRENATAL VITAMINS W/ FOLIC ACID TABLET (FP) PO SCH (09:05)
[2018-12-01] MEDS: oxyCODONE HCL 5 MG TABLET PO PRN (09:06)
[2018-12-01] MEDS: ACETAMINOPHEN 325 MG TABLET (FP) PO PRN (09:06)
--- NOTE | 2018-12-02 15:21 | PATH ---
Surgical Pathology Report Patient Name: PRICILA LORENZO Med. Rec. #: [id number] /Age/Gender: 1995 (Age: 23) / F Account: [id number] Location: [facility] OBS/COMMUNITY SERVICE OFFICER Taken: 11/28/2018 Received: 11/29/2018 Reported: 12/02/2018 Physicians: Krystina Wilson M.D. Specimen(s) Received PLACENTA Clinical History , history of hepatitis A, x1 Final Diagnosis PLACENTA, SECTION: 552 G THIRD TRIMESTER PLACENTA WITH TRIVASCULAR UMBILICAL CORD AND UNREMARKABLE PLACENTAL MEMBRANES. Electronically Signed Viridiana Fortune M.D. Gross Description The specimen is received fresh labeled placenta and is a 552 gram, 19.0 x 14.0 x 2.5 cm. placenta with attached membranes and umbilical cord. The attached membranes are best, translucent with focal opacities and insert marginally. The umbilical cord measures 31 cm. in length and averages 1.1 cm. in diameter. The cord inserts eccentrically, 3 cm. to the nearest margin. No true knots or strictures are identified. Cut surface of the umbilical cord reveals 3 vessels. The surface is escamilla-blue with minimal fibrin deposition and appropriate caliber vessels. The maternal surface is red-brown with focal defects. Sectioning reveals red-brown, spongy parenchyma. No lesions are identified. Diet Technician Registered sections are submitted in three cassettes as follows: 1- membrane rolls and umbilical cord; 2-3- full thickness sections of placenta. /12/01/2018 saudi12/01/2018
== END 2018-12-01 14:00 | disposition home or self-care (01) | DRG 540 ==
LOC: JLDR 11:45 → J3W 16:45
PROVIDERS: ADMIT Obstetrics & Gynecology; ATTEND Obstetrics & Gynecology
PROC: 10D00Z1 Extraction of Products of Conception, Low, Open Approach (ICD-10-PCS; principal; 2018-11-28)
DX: O34.211 Maternal care for low transverse scar from previous cesarean delivery (principal); D57.3 Sickle-cell trait; O99.013 Anemia complicating pregnancy, third trimester; Z3A.39 39 weeks gestation of pregnancy; Z37.0 Single live birth
CPT/HCPCS: 36415; 80048; 80307; 85025; 85610; 85730; 86593; 86850; 86900; 86901; 88307-TC; J0131